=== PATIENT | male | born 1985 | race Caucasian/White ===

== ENCOUNTER 2018-10-02 20:25 | Emergency (ER) | payer BC ==
[~2018-10-02] VITALS: Ht 167.6 cm; Wt 63.5 kg
[2018-10-02 20:30] VITALS: BP_SYST 140
== END 2018-10-02 21:15 | disposition left against medical advice (07) ==
LOC: SED 20:25
DX: T63.441A Toxic effect of venom of bees, accidental (unintentional), initial encounter (principal); Z53.21 Procedure and treatment not carried out due to patient leaving prior to being seen by health care provider; Y92.89 Other specified places as the place of occurrence of the external cause